=== PATIENT | male | born 1995 | race Caucasian/White ===

== ENCOUNTER 2017-12-13 14:49 | Inpatient (IN) | payer BC, OTHER ==
[~2017-12-13] VITALS: Ht 175.3 cm; Wt 81.6 kg
[2017-12-13 16:20] VITALS: BP 126/77
[2017-12-13 16:39] LABS: *AMPHETAMINE, URINE NEGATIVE (NEGATIVE); *BARBITURATE, URINE NEGATIVE (NEGATIVE); *CANNABINOID, URINE POSITIVE (NEGATIVE); *COCCAINE, URINE NEGATIVE (NEGATIVE); *OPIATE, URINE POSITIVE (NEGATIVE); *PHENCYCLIDINE SCREEN,URINE NEGATIVE (NEGATIVE)
[2017-12-13 17:30] VITALS: BP 121/88
[2017-12-13] MEDS ORDERED: BUPRENORPHINE HCL 2 MG TAB.SUBL SL ONE (17:30)
--- NOTE | 2017-12-13 17:30 | NUR ---
ADMISSION tPt is a 22 yo male admitted to [facility] on 12/13/17 at 1636 for medically supervised detox. He is A&O and ambulatory. Allergic to PCNs, full code status, and on a regular diet. He does not appear intoxicated and answers appropriately. He reports PMH of multiple hand fractures, anxiety, depression, insomnia, and drug overdoses. He reports seizure like activity when he is having a panic attack with elevated HR. Vital signs in intake are: B/P 126/77, HR 101, RR 18, O2 sat 100%, T 97.6. He reports headache and backache. Lung sounds clear, PERRLA, brisk capillary refill, bowel sounds present, skin is warm, moist, and intact. History of Use 1) Heroin/china white 0.5 grams per day for the past 3 weeks. Last used 0.5 grams 12/12/17 at 1400. He has used heroin since age 16. 2) Xanax 0.25mg every two months. Last used 0.25 mg 12/12/17 at 2000. He has used Xanax since age 14. 3) Suboxone 1 strip occasionally. Pt used Suboxone maintenance for 9 months in order to stop using IV heroin. Last used 1/4 of a strip 12/12/17 at 1200. 4) Marijuana 1 gram a few times per month. He has used marijuana since age 17. This is his first time in treatment. Patient currently lives at home with his Father. He decided to come to treatment today because "my best friend ". He is also motivated by his girlfriend to come to treatment. His longest period of sobriety was 9 months from 12/2016-09/2017. Pt does not have primary care physician. On admission pt is observed with dilated pupils, goose bumps, and is yawning. He reports anxiety and back pain. COWS on admission is 12. made aware. Fall and seizure precautions in place. Bed is down with call light in reach. Addendum: 02/26/18 at 1902 by MOIRA PLEITEZ RN Correction: Pt reports h/o loss of consciousness followed by a "seizure" when having a panic attack with elevated HR.
--- NOTE | 2017-12-13 17:45 | NUR ---
One time Subutex Pt reports anxiety, restless legs, back ache, mild nausea, and has dilated pupils. COWS score 16. Order received for one time Subutex.
[2017-12-13] MEDS ORDERED: ONDANSETRON 4 MG/2 ML VIAL IM PRN (18:00)
[2017-12-13] MEDS ORDERED: MAG HYDROX/AL HYDROX/SIMETH 30 ML LIQUID UDC PO PRN (18:00)
[2017-12-13] MEDS ORDERED: ONDANSETRON HCL 4 MG TABLET PO PRN (18:00)
[2017-12-13] MEDS ORDERED: ONDANSETRON ODT 4 MG TAB.RAPDIS SL PRN (18:00)
[2017-12-13] MEDS ORDERED: MAGNESIUM HYDROXIDE 30 ML LIQUID UDC PO PRN (18:00)
[2017-12-13] MEDS ORDERED: MIRALAX 17 GM POWD.PACK PO PRN (18:00)
[2017-12-13] MEDS ORDERED: ACETAMINOPHEN 325 MG TABLET PO PRN (18:00)
[2017-12-13] MEDS ORDERED: THIAMINE HCL 200 MG/2 ML VIAL IM ONE (18:00)
[2017-12-13] MEDS ORDERED: PROMETHAZINE HCL 25 MG TABLET PO PRN (18:00)
[2017-12-13] MEDS ORDERED: LOPERAMIDE HCL 2 MG CAPSULE PO PRN (18:00)
[2017-12-13] MEDS ORDERED: LORAZEPAM 2 MG/1 ML VIAL IM PRN (18:00)
[2017-12-13] MEDS ORDERED: BUPRENORPHINE HCL 2 MG TAB.SUBL SL PRN (18:15)
[2017-12-13] MEDS: LORAZEPAM 1 MG TABLET PO PRN ×2 (18:45→22:32)
[2017-12-13] MEDS: GABAPENTIN 300 MG CAPSULE PO SCH ×2 (18:45→20:06)
--- NOTE | 2017-12-13 18:45 | NUR ---
One time Subutex reassessment One time Subutex somewhat effective. Pt continues to have moderate anxiety and restless legs. COWS score reduced to 10.
--- NOTE | 2017-12-13 18:46 | NUR ---
Ativan 2mg po prn administered for CIWA 16
--- NOTE | 2017-12-13 19:27 | NUR ---
END OF SHIFT Report provided to caustic cresylate shift superintendent nurse. Pt is lying in bed resting. He is a 22 yo male admitted to [facility] for opiate withdrawal. He was experiencing s/s of withdrawal on admission. One time Subutex and PRN Ativan administered. Subutex somewhat effective. Endorsed to day shift for Ativan reassessment. Safety measures in place.
--- NOTE | 2017-12-13 19:46 | NUR ---
START OF SHIFT NOTE /ATIVAN RE-ASSESSMENT RECEIVED REPORT FROM DAY SHIFT NURSE. PATIENT IS 22 YEAR OLD MALE NEWLY ADMITTED FOR OPIATE WITHDRAWAL. PATIENT WAS PLACED ON 5 DAY SUBUTEX TAPER. PATIENT WAS GIVEN PRN ATIVAN AND PRN SUBUTEX. LAST COWS 10 AND CIWA 16. RECEIVED PATIENT IN THE ROOM WITH FLAT AFFECT, SAD, ANXIOUS, WORRIED, HE REPORTS HOT FLUSHES, BACK AND HAND PAIN , RESTLESS LEGS AND SWEATING. HE STATES ATIVAN IS INEFFECTIVE. RELAXATION TECHNIQUE PROVIDED. SAFETY MEASURE IN PLACE. CALL LIGHT IN REACH. WILL CONTINUE TO MONITOR.
[2017-12-13] MEDS: METHOCARBAMOL 750 MG TABLET PO PRN (20:06)
[2017-12-13] MEDS: HYDROXYZINE PAMOATE 25 MG CAPSULE PO PRN (20:06)
[2017-12-13] MEDS: IBUPROFEN 600 MG TABLET PO PRN (20:06)
[2017-12-13] MEDS: CLONIDINE HCL 0.1 MG TABLET PO PRN (20:06)
--- NOTE | 2017-12-13 20:06 | NUR ---
PRN CATAPRES,MOTRIN,ROBAXIN AND VISTARIL ADMINISTRATION PATIENT C/O ANXIETY, NOTED RESTLESS , C/O PAIN ON LOWER BACK AND BILATERAL HANDS . WILL MONITOR FOR EFFECTIVENESS
[2017-12-13] MEDS ORDERED: MAGNESIUM CHLORIDE 64 MG TABLET.SA PO SCH (21:00)
--- NOTE | 2017-12-13 21:06 | NUR ---
PRN CATAPRES, MOTRIN, ROBAXIN AND VISTARIL RE-ASSESSMENT PATIENT STATES PRN MEDICATION ARE INEFFECTIVE. LESS PAIN ON BACK AND BOTH HANDS. PATIENT STATES HE WILL TRY TO GO TO REC ROOM TO WATCH TV AND WILL TRY TO RELAX
[2017-12-13 21:36] LABS: BASOPHILS % (AUTO) 0.3 % (0.0-2.0); EOSINOPHILS # (AUTO) 0.1 K/uL (0.0-0.7); EOSINOPHILS % (AUTO) 1.3 % (0.0-7.0); HEMATOCRIT 42.8 % (36.7-47.1); HEMOGLOBIN 14.7 g/dL (12.5-16.3); LYMPHOCYTES # (AUTO) 3.4 K/uL (20.0-40.0); LYMPHOCYTES % (AUTO) 32.7 % (20.5-51.5); MEAN CORPUSCULAR HEMOGLOBIN 27.7 uug (23.8-33.4); MEAN CORPUSCULAR HGB CONC 34 g/dL (32.5-36.3); MEAN CORPUSCULAR VOLUME 80.7 fL (73.0-96.2); MONOCYTES # (AUTO) 0.6 K/uL (2.0-10.0); NEUTROPHILS # (AUTO) 6.2 K/uL (1.8-8.9); NEUTROPHILS % (AUTO) 59.7 % (38.5-71.5); PLATELET COUNT (AUTO) 331 K/uL (152-348); RED BLOOD CELL COUNT(AUTO) 5.31 MIL/uL (4.06-5.63); WHITE BLOOD COUNT (AUTO) 10.4 K/uL (3.6-10.2)
[2017-12-13 21:40] LABS: ETHANOL < 3 MG/DL (0-0)
[2017-12-13 21:49] LABS: ALANINE AMINOTRANSFERASE 32 U/L (16-63); ALKALINE PHOSPHATASE 70 U/L (50-136); ASPARTATE AMINOTRANSFERASE 18 U/L (15-37); BILIRUBIN,TOTAL 0.6 mg/dL (0.2-1.0); CARBON DIOXIDE 30 mmol/L (21-32); CHLORIDE 101 mmol/L (98-107); CREATININE 1.1 mg/dL (0.6-1.3); GLUCOSE 114 mg/dL (74-106); MAGNESIUM 2.3 mg/dL (1.8-2.4); POTASSIUM 3.7 mmol/L (3.5-5.1); TOTAL PROTEIN, SERUM 7.9 g/dL (6.4-8.2); UREA NITROGEN, BLOOD 10 mg/dL (7-18)
[2017-12-13] MEDS ORDERED: GABAPENTIN 300 MG CAPSULE PO ONE (22:30)
--- NOTE | 2017-12-13 22:31 | NUR ---
PRN ATIVAN AND ROBAXIN RE-ASSESSMENT PATIENT IS LESS ANXIOUS, IN BED WATCHING TV. CIWA DOWN TO 6. ROBAXIN MILDLY EFFECTIVE. WILL CONTINUE TO MONITOR
--- NOTE | 2017-12-13 22:31 | NUR ---
PRN ATIVAN,BENADRYL,TYLENOL AND ONE TIME NEURONTIN ADMINISTRATION PATIENT C/O SEVERE ANXIETY 05/27 , NOTED RESTLESS, IRRITABLE, AGITATED, PACING INSIDE THE ROOM, PATIENT NOTED KEEPS GOING DOWN TO SMOKE, HE C/O LOWER BACK PAIN, RESTLESS LEGS AND DIFFICULTY FALLING ASLEEP. CIWA 16 UPON ASSESSMENT. WILL MONITOR FOR EFFECTIVENESS
[2017-12-13] MEDS: diphenhydrAMINE 50 MG CAPSULE PO PRN (22:32)
[2017-12-14] VITALS: BP 115/64
[2017-12-14] MEDS: KETOROLAC TROMETHAMINE 30 MG INJ IM PRN ×3 (00:29→14:17)
--- NOTE | 2017-12-14 00:29 | NUR ---
PRN TORADOL IM ADMINISTRATION PATIENT STILL C/O LOWER BACK PAIN 06/27, WILL MONITOR FOR EFFECTIVENESS
--- NOTE | 2017-12-14 01:29 | NUR ---
PRN TORADOL IM / BENADRYL RE-ASSESSMENT PATIENT IN BED WITH EYES CLOSED. NO FACIAL GRIMACING. RESPIRATION EVEN AND UNLABORED. WILL CONTINUE TO MONITOR.
[2017-12-14 04:00] VITALS: BP 113/59
--- NOTE | 2017-12-14 04:00 | NUR ---
COWS AND CIWA DEFERRED PATIENT SLEEPING. RESPIRATION EVEN AND UNLABORED. WILL CONTINUE TO MONITOR.
[2017-12-14] MEDS: METHOCARBAMOL 750 MG TABLET PO PRN ×2 (05:02→12:12)
--- NOTE | 2017-12-14 05:02 | NUR ---
PRN ROBAXIN ADMINISTRATION PATIENT C/O RESTLESS LEGS. WILL MONITOR FOR EFFECTIVENESS
--- NOTE | 2017-12-14 06:02 | NUR ---
BELEM SLAOMON RE-ASSESSMENT PATIENT IN BED WITH EYES CLOSED. NO FACIAL GRIMACING. RESPIRATION EVEN AND UNLABORED. WILL CONTINUE TO MONITOR
--- NOTE | 2017-12-14 07:19 | NUR ---
END OF SHIFT NOTE PATIENT SLEPT 5 HOURS. FLUID INTAKE OF 1,605 ML. VOIDED 4 . NO BM. MONITORED PATIENT THROUGHOUT SHIFT. PATIENT WAS C/O ANXIETY, RESTLESS LEGS, PAIN ON LOWER BACK AND BILATERAL HANDS DUE TO HISTORY OF MULTIPLE HAND FRACTURES. CONTINUES REDIRECTION PROVIDED. PRN CATAPRES, BENADRYL, ATIVAN FOR CIWA 16 AND WENT DOWN TO 6, MOTRIN , ROBAXIN, VISTARIL AND TORADOL IM. ONE TIME ORDER OF NEURONTIN GIVEN BY DR. LUQUE FOR RESTLESS LEGS. LAST COWS 6 AND CIWA 6 AT MIDNIGHT. SAFETY MEASURE IN PLACE. CALL LIGHT IN REACH. WILL CONTINUE TO MONITOR
--- NOTE | 2017-12-14 07:37 | NUR ---
Start of Shift Notes: Received endorsement from night nurse. Patient is a 22 year old male admitted for opiate and BZO dependence who was placed on a 5-day Subutex taper as ordered. No adverse reactions noted. Received patient awake, alert and oriented x 4. . Appears disheveled. Room is unkempt. Encouraged maintenance of personal hygiene and personal space. Patient verbalizes "I'm having the worse withdrawals ever in my entire life." Patient complains of tremors, chills, hot flashes, sweats, myalgia of 9/10, abdominal cramps, anxiety and agitation. Denies AV hallucinations. Denies S/I or H/I noted. Educated patient on his current plan of care for the day and his medication regimen. Encouraged oral fluid intake and encouraged group participation to learn new skills to prevent relapse. Will continue to monitor and provide support.
[2017-12-14 08:00] VITALS: BP 105/61
[2017-12-14] MEDS: FOLIC ACID 1 MG TABLET PO SCH (08:05)
[2017-12-14] MEDS: DICYCLOMINE HCL 20 MG TABLET PO PRN (08:05)
[2017-12-14] MEDS: DOCUSATE SODIUM 250 MG CAPSULE PO SCH (08:05)
[2017-12-14] MEDS: MULTIVITAMINS,THERAPEUTIC TABLET PO SCH (08:05)
[2017-12-14] MEDS: LORAZEPAM 1 MG TABLET PO PRN ×2 (08:05→14:16)
[2017-12-14] MEDS: THIAMINE HCL 100 MG TABLET PO SCH (08:05)
[2017-12-14] MEDS: GABAPENTIN 300 MG CAPSULE PO SCH ×3 (08:05→21:00)
[2017-12-14] MEDS: BUPRENORPHINE HCL 2 MG TAB.SUBL SL SCH ×4 (08:06→21:00)
[2017-12-14] MEDS: CLONIDINE HCL 0.1 MG TABLET PO PRN ×2 (08:06→14:16)
--- NOTE | 2017-12-14 08:06 | NUR ---
Toradol 30 mg IM/Ativan 1 mg/Bentyl 20 mg/Clonidine 0.1mg PO given: 22/CIWA 14, patient is seen with anxiety/agitation, restless while in bed, irritable mood and angry, appears uncomfortable, noted with gross tremors, rubbing legs, and complains of abdominal cramps, with sweating and complains of chills, piloerection of the skin noted. Medicated patient with Toradol 30 mg IM for 9/10 pain, Ativan 1 mg PO for CIWA 14, Bentyl 20 mg PO for abdominal cramps and Clonidine 0.1mg PO for chills, anxiety, sweats. Pulse 100. BP 115/61. Will monitor for effectiveness.
--- NOTE | 2017-12-14 08:36 | NUR ---
Re-assessment: Toradol Patient verbalizes relief from generalized muscle/joint pain. He describes PL is now 01/25.
[2017-12-14] MEDS ORDERED: TUBERCULIN,PURIF.PROT.DERIV. 5 TU/0.1 ML TEST ID ONE (09:00)
[2017-12-14] MEDS ORDERED: 5 DAY TAPER BUPRENORPHINE -SERENITY PROTOCOL SL PRN (09:00)
--- NOTE | 2017-12-14 09:06 | NUR ---
Re-assessment: Ativan/Bentyl/Clonidine CIWA 4, patient noted with less anxiety, less agitation, tremors and sweating noted. He verbalizes relief from abdominal cramps, chills, sweats and hot flashes. PRN Ativan, Bentyl and Clonidine were effective.
[2017-12-14] MEDS ORDERED: POLYMYXIN B (10:17)
[2017-12-14] MEDS ORDERED: CALC117719 PO (10:17)
[2017-12-14] MEDS ORDERED: DEXAMETHASONE (10:17)
[2017-12-14] MEDS ORDERED: NEOMYCIN (10:17)
[2017-12-14 12:00] VITALS: BP 118/61
--- NOTE | 2017-12-14 12:12 | NUR ---
Robaxin 750mg PO given: Patient noted with complain of 6/10 lower legs and back pain. Non-pharmacological interventions provided but ineffective. Medicated patient with Robaxin 750 mg PO as ordered. Will monitor for effectiveness. Addendum: 12/14/17 at 1218 by REY AMARAL LVN Med was given. Notified MDJohnny Per MD Serna. OK to give at this time.
--- NOTE | 2017-12-14 13:12 | NUR ---
Re-assessment: Robaxin Per patient, PRN Robaxin was effective in reducing lower leg pain and back pain. PL 12/25.
[2017-12-14] MEDS ORDERED: BACLOFEN 20 MG TABLET PO PRN (14:15)
--- NOTE | 2017-12-14 14:24 | NUR ---
Toradol 30/Clonidine/Ativan/Baclofen PO given: Patient continues to complain of 9/10 low back pain. Heat packs provided but did not help. CIWA 8, patient presented with anxiety, agitation, sweats. Patient was irritable and severely anxious and restless, with sweats and complains of chills and hot flashes. Medicated patient with Toradol 30 mg IM, Clonidine 0.1mg PO, Ativan 1 mg PO and Baclofen 20 mg PO as ordered. Will monitor for effectiveness.
[2017-12-14] MEDS: ACETAMINOPHEN ES 500 MG TABLET PO SCH ×2 (14:25→21:00)
[2017-12-14] MEDS: LIDOCAINE 5% PATCH TD SCH (14:26)
--- NOTE | 2017-12-14 14:47 | NUR ---
Re-assessment: Toradol Per patient, PRN Toradol was effective in reducing low back pain and lower leg pain. PL 2/10.
--- NOTE | 2017-12-14 15:24 | NUR ---
Re-assessment: Clonidine, Ativan and Baclofen Per patient, PRN Clonidine, Ativan and Baclofen were effective in reducing anxiety, low back pain 2/10, and chills/hot flashes. CIWA 4.
[2017-12-14 16:00] VITALS: BP 125/69
--- NOTE | 2017-12-14 17:16 | NUR ---
Therapist prompted client to come to groups.
[2017-12-14] MEDS: HYDROXYZINE PAMOATE 25 MG CAPSULE PO PRN (18:25)
--- NOTE | 2017-12-14 18:25 | NUR ---
Vistaril 25 mg PO given: Patient verbalizes complain of anxiety from a phone call he made with his dad. CT 72, BP 115/62. Encouraged patient to verbalize his feelings and concerns with no help. Medicated patient with Vistaril 25 mg Po as ordered. Will monitor for effectiveness.
--- NOTE | 2017-12-14 18:29 | NUR ---
Psych Communication: Patient reports taking Seroquel 200 mg PO at HS for sleep while at home. Notified Dr. Foster. is driving at this time and unable to enter orders. Received x 1 order for Seroquel 200 mg PO at HS for tonight. Orders noted and carried out.
--- NOTE | 2017-12-14 19:01 | NUR ---
End of Shift Notes: Patient is on a 5-day Subutex taper. He is on day 1. Tolerated well. No adverse reactions noted. VS monitored closely. No significant abnormalities noted. Withdrawal symptoms were closely monitored. Initial COWS 22/CIWA 14, patient presented with myalgia, joint pain, chills, hot flashes, sweating, goosebumps, anxiety/agitation, tremors, pupil dilation, and stomach cramps. No S/I or H/I noted. No AV hallucinations noted. PRN Toradol, Ativan 1 mg, Bentyl and Clonidine were given at 0806 with help after 1 hour. At 1212, patient was medicated with Robaxin 750 mg PO for lower leg and back pain with help after 1 hour. Meds were adjusted by MD to help with pain. Ativan 1 mg, Clonidine, Toradol and Baclofen were given at 1424 with help after 1 hour. Patient complained of anxiety at 1825 and was given Vistaril 25 mg PO as ordered. Last COWS 14/CIWA 4. Patient was unable to participate in group and activities due to his withdrawal symptoms. Compliant with care and treatment. Requires redirection and reassurance due to complains of anxiety and pain throughout the day. Group participation and oral fluids encouraged. All needs met and attended. Will continue to monitor closely.
--- NOTE | 2017-12-14 19:20 | NUR ---
Start of Shift Patient Received. Patient is noted in activities room participating in a group meeting. Per endorsement, patient received numerous amounts of PRN medications due to verbalizing increased pain and anxiety. Patient continues on 5 day Subutex taper. Patient was seen and evaluated by MD with medication changes from PRN to Routine. Patient received PRN Vistaril at 1825. Patient requires redirection and reassurance due to complains of anxiety and pain throughout the day. Group participation and oral fluids encouraged throughout shift. Will re-evaluate when patient returns from meeting. Will continue to monitor.
--- NOTE | 2017-12-14 19:30 | NUR ---
MD Communication/ 1:1 Sitter Patient noted returning to his room from the group meeting. Patient noted verbalizing "my pulse is boosting and I was blacking out in the room over there. I need my medications." Encouraged patient to get into bed and rest while vitals were rendered. Vitals rendered and noted to be 102/55 and pulse of 81. Relayed to CN and MD with orders to place patient on 1:1 sitter, Patio, and room restriction for safety. Explained to patient of 1:1, room and patio restrictions. Patient verbalized understanding. Patient also noted verbalizing "just hurry up and give me my meds." 1:1 at bedside. All needs attended to promptly. Will continue to monitor.
[2017-12-14 20:07] VITALS: BP 110/63
--- NOTE | 2017-12-14 20:30 | NUR ---
RAMANDEEP/BOBBI Deferred Upon returning to room with medications for patient, he was noted in bed sleeping. No facial grimacing noted. No restlessness noted. 1:1 Sitter remains at bedside. Will continue to monitor. Addendum: 12/14/17 at 2210 by JACQUELINE FLANNERY LVN Amended: Links added.
[2017-12-14] MEDS: QUETIAPINE FUMARATE 200 MG TABLET PO SCH (21:00)
[2017-12-14] MEDS ORDERED: QUETIAPINE FUMARATE 200 MG TABLET PO ONE (21:00)
[2017-12-15] VITALS (7 sets, daily range): BP systolic 92–132; BP diastolic 42–77
[2017-12-15] MEDS: QUETIAPINE FUMARATE 200 MG TABLET PO SCH ×2 (01:45→20:29)
[2017-12-15] MEDS: ACETAMINOPHEN ES 500 MG TABLET PO SCH ×4 (01:45→20:29)
[2017-12-15] MEDS ORDERED: BUPRENORPHINE HCL 2 MG TAB.SUBL SL ONE (01:45)
[2017-12-15] MEDS: GABAPENTIN 300 MG CAPSULE PO SCH ×4 (01:45→20:29)
[2017-12-15] MEDS: LOPERAMIDE HCL 2 MG CAPSULE PO PRN ×2 (04:05→09:47)
--- NOTE | 2017-12-15 04:08 | NUR ---
PRN Medication administration Patient is noted with episode of loose stool. PRN Imodium administered. Will continue to monitor.
--- NOTE | 2017-12-15 05:00 | NUR ---
PRN Medication Reassessment Patient is noted in bed sleeping. Breathing even and non labored. No further episodes of loose stool noted. PRN Imodium noted to be effective. Will continue to monitor.
--- NOTE | 2017-12-15 07:03 | NUR ---
End of Shift Patient is in bed sleeping. Breathing even and non labored. Patient was noted at the start of shift verbalizing episodes of blacking out while in activities room participating in group meeting. MD made aware and patient was place on 1:1, room restriction, and patio restriction for safety. Patient was noted to be focused on medications and requesting more medication despite experiencing episodes. Upon returning to room for routine medication administration patient was noted to be sleeping. Patient then noted to be awake later during shift and requesting missed medications and verbalizing increased signs and symptoms of withdrawal. COWS 10 and CIWA 7. Medications administered with MD made aware. Patient then noted with episode of loose bowel with PRN Imodium administered. No other episodes noted or verbalized. Prn Imodium noted to be effective. Last noted COWS 6 and CIWA 4. All needs attended to promptly. Will endorse to continue plan of care as ordered.
--- NOTE | 2017-12-15 07:05 | NUR ---
Start of Shift Diesel Truck Mechanic received report on 22 year old male admitted on 12/13/17 for Heroin, Benzodiazepine, and Suboxone detoxification. Pt endorses an allergy to PCN, is a full code and eats a regular diet. Pt is currently on a Subutex taper, tolerating well. Last COWS 6 and CIWA 5, recorded at 0430 per NOC nurse. Pt was administered Imodium PRN for loose bowel movements. Diesel Truck Mechanic encounters pt in bed resting with eyes closed. Rise and fall of chest noted with even rise and fall of chest noted. Bed in low position with wheels locked and side rails up x2. Will continue to monitor, support and encourage according to plan of care.
[2017-12-15 08:11] LABS: HEPATITIS B SURFACE AG Negative (Negative)
[2017-12-15] MEDS ORDERED: PNEUMOCOCCAL 23-VAL P-SAC VAC 0.5 ML VIAL IM ONE (09:00)
[2017-12-15] MEDS ORDERED: INFLUENZA VACCINE 2017-2018 0.5 ML DISP.SYRIN IM ONE (09:00)
[2017-12-15] MEDS: DOCUSATE SODIUM 250 MG CAPSULE PO SCH ×2 (09:00→09:35)
[2017-12-15] MEDS: MULTIVITAMINS,THERAPEUTIC TABLET PO SCH (09:35)
[2017-12-15] MEDS: FOLIC ACID 1 MG TABLET PO SCH (09:35)
[2017-12-15] MEDS: THIAMINE HCL 100 MG TABLET PO SCH (09:36)
[2017-12-15] MEDS: BUPRENORPHINE HCL 2 MG TAB.SUBL SL SCH ×3 (09:36→20:30)
[2017-12-15] MEDS: LIDOCAINE 5% PATCH TD SCH (09:37)
--- NOTE | 2017-12-15 09:47 | NUR ---
PRN Imodium Pt endorses diarrhea thru out the night and requests Imodium. Administered per MD order and pt tolerated well. Will continue to monitor, support and encourage according to plan of care.
--- NOTE | 2017-12-15 10:47 | NUR ---
PRN Re-Assessment Pt states he has not had any BM and is unable to determine the effectiveness. Will continue to monitor, support and encourage according to plan of care.
[2017-12-15] MEDS ORDERED: HYDROXYZINE PAMOATE 25 MG CAPSULE PO PRN (12:15)
[2017-12-15] MEDS: CLONIDINE HCL 0.1 MG TABLET PO PRN ×2 (12:18→23:38)
[2017-12-15] MEDS: METHOCARBAMOL 750 MG TABLET PO PRN (12:18)
[2017-12-15] MEDS: KETOROLAC TROMETHAMINE 30 MG INJ IM PRN (12:20)
--- NOTE | 2017-12-15 12:20 | NUR ---
PRN Robaxin/Clonidine/Vistaril/Toradol Pt complains of severe muscle aches and cramps, chills, anxiety and pain 06/27. Pt has attempted non-pharmacological interventions and is requesting to medicated for withdrawal symptoms. Pt COWS 12/CIWA 12. Will continue to monitor, support and encourage according to plan of care.
--- NOTE | 2017-12-15 12:50 | NUR ---
PRN - Re-Assessment (Toradol ) Pt endorses some relief, " It worked, just like last night." Pt no longer with grimace on face, but remains irritable and manipulative. Will continue to monitor, support and encourage according to plan of care.
--- NOTE | 2017-12-15 13:20 | NUR ---
PRN - Re-Assessment (Clonidine/Robaxin/Vistaril) Pt is visibly less anxious and has been socializing with staff and peers. Pt is rude, demanding and manipulative. Pt endorses relief of muscle aches and spasms. Pt no longer kicking and rocking legs. Pt is ambulatory and brighter then pre PRN medication. Will continue to monitor, support and encourage according to plan of care.
[2017-12-15] MEDS: QUETIAPINE FUMARATE 100 MG TABLET PO SCH (14:19)
[2017-12-15] MEDS: HYDROXYZINE PAMOATE 25 MG CAPSULE PO SCH ×3 (17:40→23:38)
--- NOTE | 2017-12-15 19:10 | NUR ---
End of Shift Process Owner provided report on 22 year old male admitted on 12/13/17 for Heroin, Benzodiazepine, and Suboxone detoxification. Pt endorses an allergy to PCN, is a full code and eats a regular diet. Pt is currently on a Subutex taper, tolerating well. Last COWS 8 and CIWA 7, recorded at 1600. Process Owner administered Imodium, Robaxin, Clonidine, Vistaril and Toradol PRN today. Pt has been irritable, manipulative, demanding and entitled with low frustration tolerance and impulsivity. Pt has calmed this afternoon and has been more at ease with staff. Bed in low position with wheels locked and side rails up x2. Will continue to monitor, support and encourage according to plan of care.
--- NOTE | 2017-12-15 19:11 | NUR ---
Start of shift note Received report from day shift nurse. pt is a22 yo male, A+Ox4, presenting to [facility] for Opiate withdrawal. Pt noted with anxiety, agitation, restlessness, and messy room. Pt has HX of anxiety and insomnia which will be monitored during shift. Respirations even and unlabored. Will continue to monitor.
[2017-12-15] MEDS: diphenhydrAMINE 50 MG CAPSULE PO PRN (23:38)
--- NOTE | 2017-12-15 23:38 | NUR ---
PRN Clonidine and Benadryl Pt c/o anxiety, agitation, and inability to sleep and requested for PRN Clonidine and Benadryl. Medications given and tolerated well. Will reassess within 1 HR. Will continue to monitor.
[2017-12-16 00:08] VITALS: BP 118/74
--- NOTE | 2017-12-16 00:30 | NUR ---
PRN Clonidine and Benadryl Reassessment Medication effective. Pt is resting well in bed. No s/s of ASE noted at this time. Respirations even and unlabored. Will continue to monitor.
[2017-12-16] MEDS: HYDROXYZINE PAMOATE 25 MG CAPSULE PO SCH ×5 (04:00→21:54)
[2017-12-16 04:25] VITALS: BP 122/77
--- NOTE | 2017-12-16 06:55 | NUR ---
End of shift note Pt continuously noted with anxiety, agitation, restlessness, and messy room. Pt was out of room frequently to get food from kitchen and to go smoke on smoking patio. Pt was given PRN Clonidine and Benadryl @2338 for anxiety, agitation, and inability to sleep. Pt slept for a total of 7 HRS. Last COWS: 8 and Last CIWA: 8 @0400. Pts V/S were WNL during shift. Respirations even and unlabored. Will endorse to day shift nurse.
--- NOTE | 2017-12-16 07:20 | NUR ---
START OF SHIFT Pt is a 22 yr old male, AA&Ox4. pt was admitted on 12/13/17 for Opiate/Benzo w/d and is on 5 day Subutex taper as ordered. Received report from shift production associate nurse. Pt received Clonidine PRN and Benadryl PRN during the night. Medication was effective. Pt slept for 7 hrs. Last COWS score was 8 and CIWA score was 8 at 0400. Pt is currently c/o anxiety and x4 episodes of diarrhea during the night. Skin is intact, warm and moist to touch. Fine tremors are seen on bilateral hands. Pt is also c/o abdominal cramping. Pt was encouraged increase fluid intake for hydration. Safety precautions observed. Call light is within reach. Will continue to f/u with care.
--- NOTE | 2017-12-16 07:40 | NUR ---
PRN GIVENS Pt c/o x4 episodes of diarrhea during the night. Imodium 2mg PO PRN was given as ordered. Pt was encouraged increase fluid intake. Will continue to monitor.
[2017-12-16 08:00] VITALS: BP 131/73
[2017-12-16] MEDS: DOCUSATE SODIUM 250 MG CAPSULE PO SCH (08:57)
[2017-12-16] MEDS: MULTIVITAMINS,THERAPEUTIC TABLET PO SCH (08:58)
[2017-12-16] MEDS: GABAPENTIN 300 MG CAPSULE PO SCH ×3 (08:58→21:54)
[2017-12-16] MEDS: ACETAMINOPHEN ES 500 MG TABLET PO SCH ×3 (08:58→21:54)
[2017-12-16] MEDS: DICYCLOMINE HCL 20 MG TABLET PO PRN (08:58)
[2017-12-16] MEDS: THIAMINE HCL 100 MG TABLET PO SCH (08:58)
[2017-12-16] MEDS: FOLIC ACID 1 MG TABLET PO SCH (08:59)
[2017-12-16] MEDS: METHOCARBAMOL 750 MG TABLET PO PRN (08:59)
--- NOTE | 2017-12-16 08:59 | NUR ---
PRN GIVEN/ IMODIUM RE-ASSESSMENT Imodium PRN was effective. Pt denies any more episodes of diarrhea. Pt c/o abdominal cramping and muscle aching 06/27. Facial grimacing is observed. Robaxin 750mg PO PRN and Bentyl 20mg PO PRN was given as ordered. Pt was encouraged increase fluid intake. Will continue to monitor.
[2017-12-16] MEDS ORDERED: BUPRENORPHINE HCL 2 MG TAB.SUBL SL SCH (09:00)
[2017-12-16] MEDS: LIDOCAINE 5% PATCH TD SCH (09:01)
--- NOTE | 2017-12-16 09:24 | NUR ---
MAALOX PRN GIVEN Pt c/o heartburn. Maalox 30ml PRN was given as ordered. Will continue to monitor.
--- NOTE | 2017-12-16 10:00 | NUR ---
PRN RE-ASSESSMENT Bentyl PO PRN, Robaxin PO PRN, and Maalox PO PRN was effective. Pt continues to c/o abdominal cramping but is at a tolerable level. Pt denies any heartburn. Pt was encouraged increase fluid intake. Will continue to monitor.
[2017-12-16 12:00] VITALS: BP 111/70
[2017-12-16] MEDS: QUETIAPINE FUMARATE 100 MG TABLET PO SCH (12:54)
[2017-12-16] MEDS: FAMOTIDINE 20 MG TABLET PO SCH ×2 (12:54→16:46)
--- NOTE | 2017-12-16 14:28 | NUR ---
Therapist prompted client to come to group and share with others.
[2017-12-16] MEDS: BUPRENORPHINE HCL 2 MG TAB.SUBL SL SCH ×2 (15:11→21:55)
[2017-12-16] MEDS: CLONIDINE HCL 0.1 MG TABLET PO PRN (15:11)
--- NOTE | 2017-12-16 15:11 | NUR ---
PRN GIVEN Pt c/o increase anxiety. Clonidine 0.1mg PO PRN was given. Medication papa well. Pt was encouraged increase fluid intake. will continue to monitor.
[2017-12-16 16:00] VITALS: BP 121/71
--- NOTE | 2017-12-16 16:30 | NUR ---
PRN RE-ASSESSMENT Clonidine 0.1mg PO PRN was effective. Pt continues to c/o anxiety but is able to cope with anxiety level. Pt attended group to cope with anxiety. will continue to monitor
[2017-12-16] MEDS: PATIENT MAY USE OWN MED- MD OK EACHEYE SCH (16:48)
--- NOTE | 2017-12-16 18:59 | NUR ---
END OF SHIFT Pt is a 22 yr old male, AA&Ox4. Pt was admitted on 12/13/17 for Opiate/Benzo withdrawal and is on 5 day Subutex taper as ordered. Medication papa well. Pt has been cooperative with medication regimen and attending group therapy. Pt c/o anxiety, muscle aching, heartburn, abdominal cramping and diarrhea. Pt received Imodium 2mg PO PRN, Bentyl 20mg PO PRN, Robaxin 750mg PRN PRN, Clonidine 0.1mg PO PRN and Maalox 30ml PO PRN was given as ordered. Medication was effective. Pt denies any more episodes of diarrhea during the day. Pt continues to c/o generalized body aches but is able to tolerate pain level. Last COWS score was 9 and CIWA score was 10 at 1600. Pt was encouraged increase fluid intake. Safety precautions observed. Call light is within reach.
--- NOTE | 2017-12-16 19:15 | NUR ---
Start of shift note Received report from day shift nurse. Pt is a 22 yo male, A+Ox4, presenting to [facility] for Opiate/Benzo withdrawal. Pt noted with very messy room with food on dresser and side table, anxiety, agitation, and sweating. Pt has HX of Anxiety, Depression, and Seizures which will be monitored during shift. Respirations even an unlabored. Will continue to monitor.
[2017-12-16 20:11] VITALS: BP 134/79
[2017-12-16] MEDS: QUETIAPINE FUMARATE 200 MG TABLET PO SCH (21:54)
[2017-12-17 00:15] VITALS: BP 138/89
[2017-12-17] MEDS: KETOROLAC TROMETHAMINE 30 MG INJ IM PRN (02:51)
--- NOTE | 2017-12-17 02:51 | NUR ---
PRN Toradol Pt c/o headache 05/27 and requested for PRN Toradol. Medication given and tolerated well. Will reassess within 1 HR. Will continue to monitor.
--- NOTE | 2017-12-17 03:48 | NUR ---
PRN Toradol Reassessment Medication effective. Pt expresses reduction in headache to 3/10. No s/s of ASE noted at this time. Respirations even and unlabored. Will continue to monitor.
[2017-12-17 04:06] VITALS: BP 127/84
--- NOTE | 2017-12-17 06:57 | NUR ---
End of shift note Pt was continuously noted with anxiety, agitation, restlessness, and very messy room. Pt was out of room periodically to go smoke on smoking patio and to get food from kitchen. Pt was given PRN Toradol @0251 for headache. Medication was effective. No s/s of ASE noted. Pt slept for a total of 9 HRS. Last COWS: 9 and Last CIWA: 9 @0400. V/S were WNL during shift. Respirations even and unlabored. Will endorse to day shift nurse.
--- NOTE | 2017-12-17 07:00 | NUR ---
Start of Shift Cellar Pumper received report on 22 year old male admitted on 12/13/17 for medical management of Heroin, Benzodiazepine, and Suboxone withdrawal. Pt endorses an allergy to PCN, is a full code and eats a regular diet. Pt reports a PMH of anxiety, depression and seizures. Pt is currently on a Subutex taper, tolerating well. Last COWS 9 and CIWA 9, recorded at 0400 per NOC nurse. Pt was administered Toradol PRN on NOC. Cellar Pumper encounters pt in bed resting with eyes closed. Rise and fall of chest noted with even rise and fall of chest noted. Bed in low position with wheels locked and side rails up x2. Will continue to monitor, support and encourage according to plan of care.
[2017-12-17 08:27] VITALS: BP 101/65
[2017-12-17] MEDS: PATIENT MAY USE OWN MED- MD OK EACHEYE SCH ×2 (08:37→17:58)
[2017-12-17] MEDS: THIAMINE HCL 100 MG TABLET PO SCH (08:38)
[2017-12-17] MEDS: HYDROXYZINE PAMOATE 25 MG CAPSULE PO SCH ×4 (08:38→20:09)
[2017-12-17] MEDS: FAMOTIDINE 20 MG TABLET PO SCH ×2 (08:38→17:58)
[2017-12-17] MEDS: ACETAMINOPHEN ES 500 MG TABLET PO SCH ×3 (08:38→20:09)
[2017-12-17] MEDS: FOLIC ACID 1 MG TABLET PO SCH (08:38)
[2017-12-17] MEDS: MULTIVITAMINS,THERAPEUTIC TABLET PO SCH (08:38)
[2017-12-17] MEDS: GABAPENTIN 300 MG CAPSULE PO SCH ×3 (08:38→20:09)
[2017-12-17] MEDS: LIDOCAINE 5% PATCH TD SCH (08:39)
[2017-12-17] MEDS: BUPRENORPHINE HCL 2 MG TAB.SUBL SL SCH ×3 (08:39→20:10)
[2017-12-17] MEDS: IBUPROFEN 600 MG TABLET PO PRN (10:59)
--- NOTE | 2017-12-17 10:59 | NUR ---
BELEM Butt Pt complains of headache, "migraine" and requests medication. Pt is not sensitive to light or sound with no nausea. Pt then states, " well I have a bad headache." Meters Superintendent administered medication per MD orders and pt tolerated well. Will continue to monitor, support and encourage according to plan of care. Will continue to monitor, support and encourage according to plan of care.
--- NOTE | 2017-12-17 11:59 | NUR ---
PRN Re-Assesment Pt is noted to be social, and interactive with peers and staff, no signs of distress noted. Pt endorses relief and states he feels much better. Will continue to monitor, support and encourage according to plan of care.
[2017-12-17 12:10] VITALS: BP 128/79
[2017-12-17] MEDS: QUETIAPINE FUMARATE 100 MG TABLET PO SCH (13:21)
[2017-12-17 16:45] VITALS: BP 132/74
--- NOTE | 2017-12-17 19:16 | NUR ---
End of Shift Completions Manager provided report on 22 year old male admitted on 12/13/17 for medical management of Heroin, Benzodiazepine, and Suboxone withdrawal. Pt endorses an allergy to PCN, is a full code and eats a regular diet. Pt reports a PMH of anxiety, depression and seizures. Pt is currently on a Subutex taper, tolerating well. Last COWS 3 and CIWA 2, recorded at 1600. Pt was administered Motrin PRN at 1059, which was effective in relieving pts headache. Pt has been calm and cooperative. Makes needs known. Appropriate with requests. Clear of thought and speech. Thought process linear. Pt is pleasant with gag writer, can be entitled at times, but shows some insight. Bed in low position with wheels locked and side rails up x2.
--- NOTE | 2017-12-17 19:17 | NUR ---
Start of shift note Received report from day shift nurse. Pt is a 22 yo male, A+Ox4, presenting to [facility] for Opiate/Benzo withdrawal. Pt noted to be anxious, agitated, restless, and having a messy room with food on dresser and side table. Pt has HX of anxiety, depression, and seizures which will be monitored during shift. Pt is on 5 day Subutex taper, tolerated well. Respirations even and unlabored. Will continue to monitor.
[2017-12-17 20:07] VITALS: BP 136/76
[2017-12-17] MEDS: QUETIAPINE FUMARATE 200 MG TABLET PO SCH (21:37)
[2017-12-18 00:39] VITALS: BP 127/79
[2017-12-18 04:22] VITALS: BP 124/76
--- NOTE | 2017-12-18 06:59 | NUR ---
End of shift note Pt continuously noted with anxiety, agitation, restlessness, and having a messy room. Pt was out of room frequently to get food from kitchen, go smoke on smoking patio, and to interact with other patients in recreational room. No PRNs were given during shift. Pt slept for a total of 9 HRS. Last COWS: 8 and Last CIWA: 7 @0400. V/S were WNL during shift. Respirations even and unlabored. Will endorse to day shift nurse.
--- NOTE | 2017-12-18 07:30 | NUR ---
START OF SHIFT Pt is a 22 yr old male, AA&Ox4. pt was admitted on 12/13/17 for Opiate/Benzo w/d and is on 5 day Subutex taper as ordered. Received report from fast food shift lead nurse. No PRN's were given during the night. Pt slept for 9 hrs. Last COWS score was 8 and CIWA score was 7 at 0400. Pt is c/o anxiety and muscle aches this morning. Skin is intact, warm and moist to touch. Pt was encouraged increase fluid intake for hydration. Safety precautions observed. Bed kept in low position and locked with side rails up x2. Call light is within reach. Will continue to f/u with care.
[2017-12-18 08:00] VITALS: BP 122/66
[2017-12-18] MEDS: LIDOCAINE 5% PATCH TD SCH (09:00)
[2017-12-18] MEDS: PATIENT MAY USE OWN MED- MD OK EACHEYE SCH ×2 (09:00→17:00)
[2017-12-18] MEDS ORDERED: BUPRENORPHINE HCL 2 MG TAB.SUBL SL SCH (09:00)
[2017-12-18] MEDS: HYDROXYZINE PAMOATE 25 MG CAPSULE PO SCH ×4 (10:10→22:24)
[2017-12-18] MEDS: GABAPENTIN 300 MG CAPSULE PO SCH ×3 (10:10→22:24)
[2017-12-18] MEDS: FOLIC ACID 1 MG TABLET PO SCH (10:10)
[2017-12-18] MEDS: MULTIVITAMINS,THERAPEUTIC TABLET PO SCH (10:10)
[2017-12-18] MEDS: ACETAMINOPHEN ES 500 MG TABLET PO SCH ×3 (10:10→22:24)
[2017-12-18] MEDS: THIAMINE HCL 100 MG TABLET PO SCH (10:11)
[2017-12-18] MEDS: FAMOTIDINE 20 MG TABLET PO SCH ×2 (10:11→17:14)
--- NOTE | 2017-12-18 10:15 | NUR ---
NSG NOTES Pt is observed wtih flat affect and his room in noted with dirty clothes and multiple open wrappers on the floor. Pt room is also noted with foul odor. Pt states of having abdominal cramping and x1 episode of diarrhea. Imodium PRN was offered but pt refused. Pt also refused to apply Lidoderm Patch x2 as scheduled at 0900. Pt states he does not have any pain. Pt was encouraged to drink plenty of fluid for hydration. Will continue to monitor.
[2017-12-18 12:00] VITALS: BP 118/82
[2017-12-18] MEDS: QUETIAPINE FUMARATE 100 MG TABLET PO SCH (12:58)
[2017-12-18] MEDS: CLONIDINE HCL 0.1 MG TABLET PO PRN (12:58)
--- NOTE | 2017-12-18 12:59 | NUR ---
PRN GIVEN Pt c/o increase anxiety due to discharge and fearful of w/d. Pt was educated in regards to discharged and prescriptions. Pt was mega to verbalize understanding. Clonidine 0.1mg PO PRN was given as ordered for anxiety. Safety precautions observed. Will continue to monitor.
--- NOTE | 2017-12-18 14:00 | NUR ---
PRN RE-ASSESSMENT Clonidine 0.1mg PO PRN was effective for anxiety. Pt continues to c/o anxiety but is able to cope with anxiety level. Pt palms are moist to touch. Pt is attending group activities to help with anxiety. Will continue to monitor.
[2017-12-18] MEDS ORDERED: DICY20TA28 PO (14:29)
[2017-12-18] MEDS ORDERED: HYDR-3895 PO (14:29)
[2017-12-18] MEDS ORDERED: QUET200T PO (14:29)
[2017-12-18] MEDS ORDERED: IBUP-1955 PO (14:29)
[2017-12-18] MEDS ORDERED: BACL20TA PO (14:29)
[2017-12-18] MEDS ORDERED: CLON0.1T14 PO (14:29)
[2017-12-18] MEDS ORDERED: FAMO20TA8 PO (14:29)
[2017-12-18] MEDS ORDERED: QUET100T PO (14:29)
[2017-12-18] MEDS ORDERED: GABA-534 PO (14:29)
[2017-12-18 16:00] VITALS: BP 112/76
--- NOTE | 2017-12-18 19:10 | NUR ---
END OF SHIFT Pt is a 22 yr old male, AA&Ox4. pt was admitted on 12/13/17 for Opiate/Benzo w/d and has completed a 5 day Subutex taper. Pt has been cooperative with medication regimen and plan of care. Pt attended group and activities as offered during the day. Pt has been c/o increase anxiety due to discharge and fear of w/d. Pt received Clonidine 0.1mg at 1258 for anxiety. Medication was effective. Pt is to be discharged tomorrow to [facility]. Skin is intact, warm and moist to touch. Last COWS score was 5 and CIWA score was 7 at 1600. Pt was encouraged increase fluid intake for hydration. Safety precautions observed. Call light is within reach.
--- NOTE | 2017-12-18 19:12 | NUR ---
Start of shift note Received report from day shift nurse. Pt is a 22 yo male, A+Ox4, presenting to [facility] for Opiate/Benzo dependence. Pt noted to be restless, agitated, anxious, and having a messy room with food on dresser and side table and clothes on floor. Pt has completed 5 day Subutex taper, tolerated well, and is due for discharge tomorrow. Respirations even and unlabored. Will continue to monitor.
[2017-12-18 20:10] VITALS: BP 124/69
[2017-12-18] MEDS: QUETIAPINE FUMARATE 200 MG TABLET PO SCH (22:25)
[2017-12-18] MEDS: METHOCARBAMOL 750 MG TABLET PO PRN (23:43)
--- NOTE | 2017-12-18 23:43 | NUR ---
PRN Robaxin Pt c/o muscle pain/spasms and requested for PRN Robaxin. Medication given and tolerated well. Will continue to monitor.
[2017-12-19 00:08] VITALS: BP 118/74
--- NOTE | 2017-12-19 00:40 | NUR ---
PRN Robaxin Reassessment Medication effective. Pt expresses reduction in muscle pain/spasms. No s/s of ASE noted at this time. Respirations even and unlabored. Will continue to monitor.
[2017-12-19] MEDS: CLONIDINE HCL 0.1 MG TABLET PO PRN ×2 (01:15→08:15)
--- NOTE | 2017-12-19 01:15 | NUR ---
PRN Clonidine Pt c/o anxiety and agitation and requested for PRN Clonidine. Medication given and tolerated well. Will continue to monitor.
--- NOTE | 2017-12-19 02:10 | NUR ---
PRN Clonidine Reassessment Medication effective. Pt expresses reduction in anxiety. No s/s of ASE noted at this time. Respirations even and unlabored. Will continue to monitor.
[2017-12-19 04:07] VITALS: BP 122/72
--- NOTE | 2017-12-19 07:00 | NUR ---
End of shift note Pt was continuously noted to be anxious, agitated, restless, and having very messy room with food on side table and dresser and clothes on floor. Pt was out of his room frequently to go smoke on smoking patio, to get food from kitchen, and to interact with other patients in recreational room. Pt was given PRN Robaxin @2343 for muscle pain/spasms and PRN Clonidine @0115 for anxiety and agitation. Pt has completed 5 day Subutex taper and is due for discharge today. Pt slept for a total of 8 HRS. Last COWS: 7 and Last CIWA: 7 @0400. V/S were WNL during shift. Respirations even and unlabored. Will endorse to day shift nurse.
--- NOTE | 2017-12-19 07:44 | NUR ---
Start of shift- Pt c/o anxiety 07/27. Denies other c/o discomfort. Respirations even and unlabored. Pt has completed 5 day Subutex taper and is due for discharge today. Pt slept for a total of 8 HRS. Last COWS: 7 and Last CIWA: 7 @0400. Safety measures in place. Will continue to monitor.
[2017-12-19 08:00] VITALS: BP 114/60
--- NOTE | 2017-12-19 08:00 | NUR ---
BELEM Adam 0.1mg PO for anxiety #7/ Addendum: 12/19/17 at 0909 by Linda Rod RN correction anxiety #10
[2017-12-19] MEDS: LIDOCAINE 5% PATCH TD SCH (08:14)
[2017-12-19] MEDS: ACETAMINOPHEN ES 500 MG TABLET PO SCH (08:14)
[2017-12-19] MEDS: PATIENT MAY USE OWN MED- MD OK EACHEYE SCH (08:14)
[2017-12-19 08:15] VITALS: BP 114/60
[2017-12-19] MEDS: FAMOTIDINE 20 MG TABLET PO SCH (08:15)
[2017-12-19] MEDS: HYDROXYZINE PAMOATE 25 MG CAPSULE PO SCH (08:15)
[2017-12-19] MEDS: MULTIVITAMINS,THERAPEUTIC TABLET PO SCH (08:15)
[2017-12-19] MEDS: FOLIC ACID 1 MG TABLET PO SCH (08:15)
[2017-12-19] MEDS: THIAMINE HCL 100 MG TABLET PO SCH (08:16)
[2017-12-19] MEDS: GABAPENTIN 300 MG CAPSULE PO SCH (08:16)
--- NOTE | 2017-12-19 09:00 | NUR ---
Reasses catapress, pt reports anxiety improved a bit, now #7/10. He is ready to be discharged.
--- NOTE | 2017-12-19 09:26 | NUR ---
Discharge note- Pt has been discharged from [facility] he is going to [facility] via car. Pt is in stable condition, VS WNL. Denies suicidal or homicidal ideations at this time. All documentation has been completed, paperwork signed and dated. Pt left will all his belongings, medications and prescriptions. Pt has been discharged from [facility] on 12/19/2017 at 0926. has been notified.
== END 2017-12-19 09:26 | disposition other institution (70) | DRG 895 ==
LOC: SRC 15:46
PROVIDERS: ADMIT Internal Medicine; ATTEND Internal Medicine
PROC: HZ2ZZZZ Detoxification Services for Substance Abuse Treatment (ICD-10-PCS; principal; 2017-12-13)
PROC: HZ41ZZZ Group Counseling for Substance Abuse Treatment, Behavioral (ICD-10-PCS; 2017-12-14)
PROC: HZ31ZZZ Individual Counseling for Substance Abuse Treatment, Behavioral (ICD-10-PCS; 2017-12-16)
DX: F11.23 Opioid dependence with withdrawal (principal); F39 Unspecified mood [affective] disorder; D72.829 Elevated white blood cell count, unspecified; F41.9 Anxiety disorder, unspecified; Z88.0 Allergy status to penicillin; Z87.892 Personal history of anaphylaxis; F17.210 Nicotine dependence, cigarettes, uncomplicated; Z79.899 Other long term (current) drug therapy; F12.90 Cannabis use, unspecified, uncomplicated
CPT/HCPCS: 36415; 70030-TC; 80307; 80346; 80349; 80361; 83735; 85025; 86580; 86592; 86705; 86803; 87340; 87806; 90686; 90732; A4663; A9150; G0480; J1885; Q0163